=== PATIENT | female | born 1955 | race Hispanic/Latino ===

== ENCOUNTER 2019-08-15 11:14 | Day surgery (SDC) | payer BC, OTHER ==
--- NOTE | 2019-08-14 08:24 | Anesthesia Consultation ---
Anesthesia Consult and Med Hx Date of service: 08/15/19 - Airway Anesthetic Teeth Evaluation: Dentures, Edentulous ROM Head & Neck: Adequate Mental/Hyoid Distance: Adequate Mallampati Class: Class II Intubation Access Assessment: Good - Pre-Operative Health Status ASA Pre-Surgery Classification: ASA3 Proposed Anesthetic Plan: General Nerve Block: PEC if needed - Pulmonary Hx Smoking: Yes (QUIT 11/05/1998) SOB: Yes (SECONDARY TO SINUS INFECTIONS; PRN INHALER) - Cardiovascular System Hx Hypertension: Yes (SINCE 2009) - Central Nervous System Hx Psychiatric Problems: Yes - Gastrointestinal Hx Gastroesophageal Reflux Disease: Yes - Endocrine Hx Renal Disease: Yes (CRI) Hx Non-Insulin Dependent Diabetes: Yes - Other Systems Hx Alcohol Use: Yes (RARE) Hx Substance Use: No Hx Cancer: Yes Hx Obesity: Yes (BMI 42) - Additional Comments Anesthesia Medical History Comments: +Med Clearance
--- NOTE | 2019-08-15 07:36 | Anesthesia Day of Surgery ---
Anesthesia Day of Surgery - Day of Surgery Patient Examined: Yes Patient H&P Reviewed: Yes Patient is NPO: Yes
[~2019-08-15 11:14] MED LIST: ACETAMINOPHEN 325 MG TAB PO NR; BUPIVACAINE-EPINEPHRINE/PF 0.25%-1:200,000 (30 ML) VIAL INFILTRATI ONE; CELECOXIB 200 MG CAP PO NR; GABAPENTIN 300 MG CAP PO NR; HYDROmorphone 1 MG/1 ML INJ IV PRN; HYDROmorphone 1 MG/1 ML INJ ONE; LACTATED RINGERS 1,000 ML IV SCH; LIDOCAINE MPF (2%) 20 MG/1 ML VIAL 5 ML ONE; MAGNESIUM OXIDE 400 MG TAB PO NR; METHYLENE BLUE 50 MG/10 ML AMP IRRIGATION ONE; METHYLENE BLUE 50 MG/10 ML AMP ONE; MIDAZOLAM 2 MG/2 ML INJ IV NR; ONDANSETRON 4 MG/2 ML INJ IV PRN; ONDANSETRON 4 MG/2 ML INJ ONE; PHENYLEPHRINE/NS 1,000 MCG/10 ML SYRINGE (OR USE) IV ONE; ROCURONIUM 50 MG/5 ML INJ IV ONE; SODIUM CHLORIDE 0.9% P/F 10 ML VIAL INFILTRATI ONE; SODIUM CHLORIDE P/F VIAL 10 ML 10 ML ONE; WATER FOR IRRIG STERILE 1,500 ML BOTTLE IR ONE; ceFAZolin/Water 2 GM/20 ML 2 GM/20 ML SYRINGE IV NR; dexAMETHasone 20 MG/5 ML VIAL ONE; fentaNYL 100 MCG/2 ML INJ IV NR; propofoL 200 MG/20 ML VIAL IV ONE
[2019-08-15] MEDS ORDERED: GLYCOPYRROLATE 0.4 MG/2 ML INJ ONE (12:09)
[2019-08-15] MEDS ORDERED: WATER FOR IRRIG STERILE 1,500 ML BOTTLE IR ONE (12:09)
[2019-08-15] MEDS ORDERED: NEOSTIGMINE 10MG/10 ML INJ MDV ONE (12:09)
--- NOTE | 2019-08-15 12:48 | Operative Report ---
Operative Report Operative Report: Operative Report: August 15, 2019 Preoperative diagnosis: Right breast cancer of the upper outer quadrant Postoperative diagnosis: Same Procedure: Right partial mastectomy of the upper outer quadrant and SLNB Surgeon: Hannah Silvestre MD [employer] Foreman: Dr. Antonio Juares Anesthesia: General Findings: Right breast with mass and clip present within radiograph specimen; x3 SLNs Complications: None EBL: Less than 50 cc Disposition: PACU in good condition Indications for operative procedure: This is a 64 year old lady with newly diagnosed right breast cancer of the upper outer quadrant, Stage I [id number] ER/SC positive (IDCA 11:00 position 7 cm from the nipple). Recommendations were to proceed with breast conservation. She understands the role of adjuvant radiation therapy and Oncotype DX will be obtained by medical oncology. She wished to proceed with the above procedure. Procedure in detail: Anesthesia placed right pectoral block. Patient was then taken to the operating room. Gen. anesthesia was administered. The right nipple was injected with radioisotope and 1 cc of Methylene blue dye given slow uptakek of radioisotope. Right breast and axilla were prepped and draped in the normal sterile operative fashion. The mass-known breast cancer was identified using ultrasound with mass and clip present at 11:00 position 7 cm FN. Timeout was performed. Gamma probe was inserted into the axilla. The area of hot spot was identified. A right axillary incision was made with a 15 blade knife with dissection taken down to the subcutaneous tissues. The axillary fascia was opened with the Bovie cautery. 3 SLNs were identified. All remaining counts were less than 10% of the highest count. Lymph nodes were sent to pathology for permanent processing. Hemostasis was obtained in the right axillary cavity. Axillary cavity was appropriately irrigated and suctioned. Hemostasis was noted. Axillary fascia was approximated and closed using interrupted 3-0 Vicryl and the skin brought together and closed using a running 4-0 Monocryl followed by skin affix. Attention was then taken towards the right breast. Ultrasound used as well for marking of incision. A 12:00 breast incision was made with a 15 blade knife and dissection taken down to subcutaneous tissues. First began raising of the superior flap with dissection take down to the pectoralis muscle, followed by raising of the inferior flap, medial flap and lateral flap with all flaps taken down to the pectoralis muscle. The breast area of concern was appropriately removed posteriorly from the pectoralis muscle with the aid of the Bovie cautery. Specimen was marked and then sent to pathology and radiology; rad iograph specimen with mass and clip present. Breast cavity was irrigated and hemostasis was obtained. The posterior deep breast tissues were approximated and closed using interrupted 3-0 Vicryl. The subcutaneous tissues were approximated and closed using interrupted 3-0 Vicryl followed by closing of the skin with a running 4-0 Monocryl and skin affix. The patient tolerated surgery very well and she was awaken from anesthesia without any complication and transported to PACU in good condition.
--- NOTE | 2019-08-15 12:51 | Short Stay Summary ---
Short Stay Documentation Date of service: 08/15/19 - History H&P: obtained from office - Allergies and Medications Current Medications: Allergies amoxicillin [From Augmentin] Adverse Reaction (Verified 08/10/19 10:01) Diarrhea clavulanic acid [From Augmentin] Adverse Reaction (Verified 08/10/19 10:01) Diarrhea lisinopril Adverse Reaction (Verified 08/10/19 10:01) Cough Home Medications Medication Instructions Recorded Confirmed Last Taken Type Acetaminophen/Codeine [Tylenol 1 tab PO Q6H PRN 08/10/19 08/10/19 Unknown History /Codeine # 3 tab] Albuterol Sulfate [Proair 2 puff IH Q4H PRN 08/10/19 08/10/19 Unknown History Respiclick] Gabapentin [Neurontin] 600 mg PO BID 08/10/19 08/15/19 08/14/19 19:00 History Liraglutide [Victoza 2-Solis] 1.8 mg SQ QDAY 08/10/19 08/15/19 08/13/19 09:00 History Losartan [Cozaar] 50 mg PO QDAY 08/10/19 08/15/19 08/14/19 09:00 History Meclizine [Antivert] 25 mg PO TID PRN 08/10/19 08/10/19 Unknown History Meloxicam [Mobic] 15 mg PO DAILY 08/10/19 08/15/19 08/10/19 09:00 History Metformin HCl [Glucophage] 1,000 mg PO BID 08/10/19 08/15/19 08/14/19 19:00 History RX: Omeprazole 40 mg PO DAILY 08/10/19 08/15/19 08/14/19 20:00 History Sertraline [Zoloft] 50 mg PO QDAY 08/10/19 08/15/19 08/14/19 19:00 History glipiZIDE [Glucotrol] 10 mg PO BID 08/10/19 08/15/19 08/14/19 19:00 History hydroCHLOROthiazide [Hctz] 12.5 mg PO QDAY 08/10/19 08/15/19 08/14/19 09:00 History HYDROcodone/APAP 5-325 [[place] 1 each PO Q6HR PRN #20 tablet 08/15/19 Unknown Rx 5/325] Active Medications Acetaminophen (Tylenol) 650 mg PO ONCE NR Stop: 08/15/19 23:00 Last Admin: 08/15/19 07:50 Dose: 650 mg Documented by: Celecoxib (Celebrex) 200 mg PO PREOP NR Stop: 08/15/19 23:00 Last Admin: 08/15/19 07:50 Dose: 200 mg Documented by: Fentanyl (Sublimaze) 100 mcg IV ONCE NR Stop: 08/15/19 23:00 Last Admin: 08/15/19 08:44 Dose: 100 mcg Documented by: Gabapentin (Gabapentin) 900 mg PO PREOP NR Stop: 08/15/19 23:00 Last Admin: 08/15/19 07:50 Dose: 900 mg Documented by: Hydromorphone HCl (Dilaudid) 0.5 mg IV Q10MIN PRN PRN Reason: Pain , Severe (7-10) Stop: 08/15/19 23:00 Cefazolin Sodium (Ancef/Sterile Water 2 Gm/20 Ml) 2 gm in 20 mls @ 80 mls/hr IV PREOP NR; Protocol Stop: 08/15/19 23:00 Lactated Ringer's (Lactated Ringers) 1,000 mls @ 125 mls/hr IV DIRECT ROSELINE Last Admin: 08/15/19 07:50 Dose: 125 mls/hr Documented by: Magnesium Oxide (Mag-Ox) 400 mg PO ONCE NR Stop: 08/15/19 23:00 Last Admin: 08/15/19 07:50 Dose: 400 mg Documented by: Midazolam HCl (Versed) 2 mg IV PREOP NR Stop: 08/15/19 23:59 Last Admin: 08/15/19 08:44 Dose: 2 mg Documented by: Ondansetron HCl (Zofran) 4 mg IV ONCE PRN PRN Reason: Nausea And Vomiting Stop: 08/15/19 23:00 - Brief post op/procedure progress note Date of procedure: 08/15/19 Pre-op diagnosis: Right breast cancer upper outer quadrant Post-op diagnosis: same Procedure: Right partial mastectomy with SLNB Anesthesia: GETA Findings: Right breast mass with clip present; x3 SLNs Surgeon: SHANON LEON Web Application Tester: CRYSTAL NORRIS Estimated blood loss: minimal Pathology: list (right partial mastectomy; x3 SLNs) Specimen disposition: to lab Condition: stable - Disposition Condition at discharge: Good Disposition: DC-01 TO HOME OR SELFCARE Short Stay Discharge Plan Activity: other (no heavy lifting) Diet: regular Wound: keep clean and dry (may shower in 48 hours; no baths, pools or lakes; wear breast binder; no heavy lifting) Follow up with: RONALDO WALTERS MD [Primary Care Provider] - 7 Days SHANON LEON MD [Staff Physician] - 7 Days Prescriptions: HYDROcodone/APAP 5-325 [[place] 5/325] 1 each PO Q6HR PRN #20 tablet PRN Reason: Pain
[2019-08-15] MEDS ORDERED: HYDROcodone/ACETAMINOPHEN 5-325 MG TAB PO PRN (13:07)
--- NOTE | 2019-08-15 13:38 | Mammography Report ---
SPECIMEN RADIOGRAPH RIGHT BREAST INDICATION: POST EXC BX. COMPARISON: No relevant prior imaging study available. FINDINGS: A single biopsy clip is identified within the specimen. No mass or calcifications identified. IMPRESSION: 1. Excision of the targeted lesion. Signer Name: Grady Scott MD Signed: 08/15/2019 1:33 PM Workstation Name: [id number]
[2019-08-15 14:35] VITALS: BP 125/59
--- NOTE | 2019-08-15 17:24 | Post Anesthesia Evaluation ---
- Post Anesthesia Evaluation Patient Participated: Yes Airway Patent: Yes Stable Respiratory Function: Yes Nausea/Vomiting: No Temp > 96.8F: Yes Pain Manageable: Yes Adequeate Hydration: Yes Anesthesia Complications: No Block Receding Appropriately: Yes Patient on Ventilator: No
== END 2019-08-15 11:15 | disposition home or self-care (01) ==
LOC: OR 11:14
PROVIDERS: ATTEND Surgery
DX: C50.411 Malignant neoplasm of upper-outer quadrant of right female breast (principal); I89.8 Other specified noninfective disorders of lymphatic vessels and lymph nodes; I10 Essential (primary) hypertension; E78.00 Pure hypercholesterolemia, unspecified; K21.9 Gastro-esophageal reflux disease without esophagitis; E66.9 Obesity, unspecified; E11.42 Type 2 diabetes mellitus with diabetic polyneuropathy; E11.39 Type 2 diabetes mellitus with other diabetic ophthalmic complication; F32.9 Major depressive disorder, single episode, unspecified; Z11.59 Encounter for screening for other viral diseases; H40.9 Unspecified glaucoma; G62.9 Polyneuropathy, unspecified; M19.90 Unspecified osteoarthritis, unspecified site; Z72.89 Other problems related to lifestyle; Z98.890 Other specified postprocedural states; Z88.6 Allergy status to analgesic agent; Z79.899 Other long term (current) drug therapy; Z79.84 Long term (current) use of oral hypoglycemic drugs; Z87.891 Personal history of nicotine dependence; Z90.49 Acquired absence of other specified parts of digestive tract; Z90.710 Acquired absence of both cervix and uterus; Z88.8 Allergy status to other drugs, medicaments and biological substances; Z68.41 Body mass index [BMI] 40.0-44.9, adult
CPT/HCPCS: 19301; 38525; 38792; 76098; 78800; 82962; 88307; 88342; A9541; J0690; J1100; J1170; J2250; J2370; J2405; J2704; J2710; J3010; J7120; Q9968; U0003; 64450; 88305

== ENCOUNTER 2020-02-20 10:02 | Outpatient (CLI) | payer BC ==
--- NOTE | 2020-02-20 12:56 | Mammography Report ---
DIGITAL SCREENING MAMMOGRAM WITH TOMOSYNTHESIS WITH CAD, 02/20/2020 CLINICAL INFORMATION / INDICATION: Routine Screening Mammography. TECHNIQUE: Digital bilateral 2D and 3D mammography with tomosynthesis was obtained in the craniocaud al and mediolateral oblique projections. Computer-Aided Detection (CAD) analysis was used for interp retation of this study. COMPARISON: Outside studies without reports: Bilateral mammogram 02/14/2016, right mammogram 0 FINDINGS: Breast Density: There are scattered areas of fibroglandular density. No dominant mass, suspicious calcifications, or architectural distortion in either breast. Interval surgical changes are seen in the upper outer quadrant of right breast. Benign-appearing calc ifications are again seen on the left. No suspicious lesions are seen. IMPRESSION: No mammographic evidence of malignancy. Follow up recommendation: Routine yearly BI-RADS Category 2: Benign. A "normal" or negative report should not discourage follow up or biopsy of a clinically significant f inding. A written summary of these findings will be mailed to the patient. The patient will be entered into a mammography reporting system which will generate a reminder letter for the patient's next appointmen t at the appropriate interval. The [employer] recommends yearly mammograms starting at age 40 and continuing as l clifford as a woman is in good health. Breast MRI is recommended for women with an approximate 20-25% or greater lifetime risk of breast cancer, including women with a strong family history of breast or ova pietro cancer or who have been treated for Hodgkin's disease. Signer Name: Patrick Elizabeth MD Signed: 02/20/2020 12:51 PM Workstation Name: [id number]
== END 2020-02-20 10:03 | disposition home or self-care (01) ==
LOC: SPVWC 10:02
PROVIDERS: ATTEND Surgery
DX: Z12.31 Encounter for screening mammogram for malignant neoplasm of breast (principal)
CPT/HCPCS: 77063; 77067